=== PATIENT | female | born 1965 | race Caucasian/White ===

== ENCOUNTER 2017-04-11 06:52 | Day surgery (SDC) | payer OTHER ==
[~2017-04-11 06:52] MED LIST: RINGER'S SOLUTION,LACTATED 1,000 ML IV PRN
[2017-04-11] MEDS ORDERED: RINGER'S SOLUTION,LACTATED 1,000 ML IV ONE (07:15)
[2017-04-11] MEDS ORDERED: LIDOCAINE HCL/EPINEPHRINE 50 ML VIAL IJ ONE (08:10)
--- NOTE | 2017-04-11 08:44 | OR ---
Operative Report - Dictated Report Narrative: DATE OF PROCEDURE: 04/11/2017 INDICATION: 51-year-old postmenopausal female with postmenopausal bleeding pathology report from endometrial biopsy in office revealed endometrial polyps. PREOPERATIVE DIAGNOSIS: Postmenopausal bleeding POSTOPERATIVE DIAGNOSIS: Same PROCEDURE: Hysteroscopy, D&C SURGEON: Nataliia Quan D.O. CLERK SPECIALIST: Or staff ANESTHESIA: IV sedation, Paracervical block ESTIMATED BLOOD LOSS: minimal URINE OUTPUT: not recorded FLUID REPLACEMENT: 600 mL FINDINGS: Normal atrophic appearing uterine cavity sounding to 11 cm with prominent uterine horns SPECIMEN(S): Endometrial curettings TECHNIQUE: The patient was taken to the operating room and placed in dorsal lithotomy position after adequate IV sedation was obtained. After sterile prep and drape, the anterior lip of the cervix was grasped with a long Allis clamp. A paracervical block was given using a 1% lidocaine with epinephrine solution. The uterus sounded to 11 cm. The 5 mm hysteroscope was inserted into the uterine cavity with findings as noted above. Using the curet, the entire uterine cavity was curettaged. The hysteroscope was reinserted noting thorough sampling of the entire uterine cavity. Sponge, lap, instrument, needle count correct x 2. DISPOSITION: The patient was transferred to the post anesthesia care unit in good condition.
[2017-04-11] MEDS ORDERED: MORPHINE SULFATE 2 MG/ML DISP.SYRIN IV PRN (08:53)
[2017-04-11] MEDS ORDERED: oxyCODONE HCL/ACETAMINOPHEN 1 TAB TABLET PO ONE (09:00)
[2017-04-11] MEDS ORDERED: IBUPROFEN 800 MG TABLET PO ONE (09:00)
[2017-04-11 10:08] VITALS: BP 108/70
== END 2017-04-11 06:53 | disposition home or self-care (01) ==
LOC: AMB 06:52
PROVIDERS: ATTEND Obstetrics & Gynecology
PROC: 0UDB8ZX Extraction of Endometrium, Via Natural or Artificial Opening Endoscopic, Diagnostic (ICD-10-PCS; principal; 2017-04-11 08:00)
DX: N84.0 Polyp of corpus uteri (principal); N95.0 Postmenopausal bleeding; E03.9 Hypothyroidism, unspecified; D64.9 Anemia, unspecified; F32.9 Major depressive disorder, single episode, unspecified; Z68.28 Body mass index [BMI] 28.0-28.9, adult